=== PATIENT | female | born 1995 | race Caucasian/White ===

== ENCOUNTER 2021-05-01 00:51 | Emergency (ER) | payer MEDICAID ==
[~2021-05-01] VITALS: Ht 154.9 cm; Wt 50.8 kg
--- NOTE | 2021-05-01 01:15 | NUR ---
PT AMBULATED TO ER WITH INTERMITTENT SHARP, NONRADIATING CP. STATES SHE WAS SEEN IN [facility] BUT LEFT TO COME HERE. A/O X4, NO SOB OR LABORED BREATHING, AFEBRILE. CLEAR SPEECH, COMPLETE SENTENCES. 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 ABLE TO MOVE ALL ETXTREMITIES WITHOUT DEFICITS.
--- NOTE | 2021-05-01 01:25 | NUR ---
DR. PARISH AT BEDSIDE, MSE IN PROGRESS.
--- NOTE | 2021-05-01 03:40 | NUR ---
Patient discharged to home in stable condition. No changes in LOC. denies any pain/discomfort upon discharge. Written and verbal after care instructions given. Patient verbalizes understanding of instructions. Stressed follow up or return to ER for worsening s/s. Steady gait.
[2021-05-01 04:23] VITALS: BP 112/70
== END 2021-05-01 03:50 | disposition home or self-care (01) ==
LOC: ER 00:58
DX: I10 Essential (primary) hypertension (principal); R00.1 Bradycardia, unspecified; K21.9 Gastro-esophageal reflux disease without esophagitis
CPT/HCPCS: 36415; 70030-TC; 93005; A4663

== ENCOUNTER 2021-05-02 14:31 | Emergency (ER) | payer MEDICAID ==
[~2021-05-02] VITALS: Ht 154.9 cm; Wt 50.8 kg
--- NOTE | 2021-05-02 14:47 | NUR ---
Urine sent to lab. [email or web address].
[2021-05-02 14:52] LABS: *URINE HCG, QUAL NEGATIVE (NEGATIVE)
[2021-05-02 14:53] LABS: *BILIRUBIN,URIN NEGATIVE (NEGATIVE); *BLOOD, URINE 2+ (NEGATIVE); *COLOR,URINE YELLOW (YELLOW); *KETONES,URINE NEGATIVE (NEGATIVE); *UROBILINOGEN,URINE 0.2 E.U./dl (NORMAL); LEUKOCYTE ESTERASE ,URINE 1+ (NEGATIVE); NITRITE, URINE NEGATIVE (NEGATIVE); PH,URINE 7.5 (5.0-8.0); UGLUCOSE NEGATIVE (NEGATIVE)
[2021-05-02 14:59] LABS: *CLARITY,URINE CLOUDY (CLEAR); RBC,URINE 80-100 /HPF (0-3)
[2021-05-02 15:01] LABS: BACTERIA,URINE FEW /HPF (NONE SEEN); SQUAMOUS EPITHELIAL CELL,UR MANY /HPF (NONE SEEN); URINE AMORPHOUS PHOSPHATES MODERATE /HPF
[2021-05-02 15:03] LABS: HEMATOCRIT 39.3 % (31.2-41.9); MEAN CORPUSCULAR HEMOGLOBIN 32.2 uug (24.7-32.8); MEAN CORPUSCULAR VOLUME 93.3 fL (75.5-95.3); PLATELET COUNT (AUTO) 188 K/uL (179-408)
[2021-05-02 15:16] LABS: ALANINE AMINOTRANSFERASE 87 U/L (14-59); ALKALINE PHOSPHATASE 53 U/L (50-136); ASPARTATE AMINOTRANSFERASE 38 U/L (15-37); BILIRUBIN,DIRECT 0.1 mg/dL (0.0-0.2); BILIRUBIN,TOTAL 0.7 mg/dL (0.2-1.0); CARBON DIOXIDE 24 mmol/L (21-32); CHLORIDE 103 mmol/L (98-107); CREATININE 0.8 mg/dL (0.6-1.3); GLUCOSE 110 mg/dL (74-106); LIPASE 80 U/L (73-393); POTASSIUM 3.7 mmol/L (3.5-5.1); TOTAL PROTEIN, SERUM 7.6 g/dL (6.4-8.2); UREA NITROGEN, BLOOD 14 mg/dL (7-18)
[2021-05-02] MEDS ORDERED: IV NORMAL SALINE 250 ML IV ONE (16:11)
[2021-05-02] MEDS ORDERED: IOHEXOL 300MG/ML 100 ML INFUS..BTL ONE (16:11)
[2021-05-02] MEDS ORDERED: SWABABLE VALVE TRANSFER SET EA MC ONE (16:11)
[2021-05-02] MEDS ORDERED: IV NS 1000 ML 1,000 ML IV ONE (16:15)
--- NOTE | 2021-05-02 17:19 | NUR ---
MD Ignacios on the phone with MD Hernández for urology consult regarding an obstructing kidney stone
[2021-05-02] MEDS ORDERED: ONDANSETRON 4 MG/2 ML VIAL ONE (17:29)
[2021-05-02] MEDS ORDERED: MORPHINE SULFATE 4 MG/1 ML DISP.SYRIN ONE (17:29)
[2021-05-02] MEDS ORDERED: IBUPROFEN 600 MG TABLET PO ONE (18:15)
--- NOTE | 2021-05-02 20:10 | NUR ---
Received report from Elisa ARDON. Patient ambulatory to [facility],reports "no pain,clear urine"gait steady to [facility]. Patient inform transfer to [facility] for higher level care/ Urology eval was recomended by ED Provider, declined by [place] weight caller Urologist. Recepteion informed of patient request to change Hospital.Dr Matt bedside with patient.
--- NOTE | 2021-05-02 21:09 | NUR ---
Assist with patient request to transfer to [facility] ER, Patient spoke with [place] insurance provider Erica on phone. Patient handed me phone,I spoke with November who said the patient was declining to [facility].Patient didnot have coverage for [facility].Patient return to room 2B. Reports denies pain able to palpate flank without pain,Given hat urine filter ,verbal instructions on maintaining hydration,moniter urine for color and stones/sand with filter. Patient asking for IV to be discontinued. House Superviser Cher advised patient mother may be bedside. Agreement for patient to be transfered via Ambulance transport. library customer service clerk bedside with forms. Patient mother was having a conversation with count room clerk that within a minute the mothers voice was very loud and calling count room clerk "F-B", low life" "leave this room, "only send nurse or doctor". library customer service clerk left. ER Charge notified.
--- NOTE | 2021-05-02 22:02 | NUR ---
[place] insurance call to desk. Agrees to call patient on her cell.
--- NOTE | 2021-05-02 23:29 | NUR ---
2325 Covid test patient self swabed x2 nares, to lab. Spoke to November at [place] plan to transfer to [place] pending results of Rapid Covid swab.
--- NOTE | 2021-05-02 23:44 | NUR ---
Patient request to check blood glucose for "feeling shaky,dizzy". BS 91. Juice bow, turky sandwich given to patient advised to eat now small bites.
--- NOTE | 2021-05-03 00:38 | NUR ---
Covid test results negative.Called to [place] spoke to Clarisa [phone] requested to fax test results to [phone]. Trying to have patient accepted to [facility].
--- NOTE | 2021-05-03 01:20 | NUR ---
Call [phone] to Alex spoke to Clarisa fax received.[phone]
--- NOTE | 2021-05-03 03:02 | NUR ---
Clarisa from [place] calls instructes that [facility] with except patient Room 327A. Dr Manzo is accepting. No need for MD to MD call .ETA 07:30 Akira [phone]. Patient informed of this plan.
--- NOTE | 2021-05-03 03:53 | NUR ---
3820 Patient report of flank pain request MD gomez. Dr Matt bedside with patient,her mother. MD recomended medication for comfort declined by patient." I do not want any medications". Ordered fluids,encouraged hydration. Encouraged rest . IV fluid up, comfort measures x 4. Lights down. Patient on phone.
--- NOTE | 2021-05-03 07:45 | NUR ---
Patient picked up via ambulance transport, report given to Odalis ARDON of [facility]
== END 2021-05-03 08:01 | disposition short-term general hospital (02) ==
LOC: ER 14:32
DX: N13.6 Pyonephrosis (principal); Z20.822 Contact with and (suspected) exposure to COVID-19; K21.9 Gastro-esophageal reflux disease without esophagitis
CPT/HCPCS: 36415; 74177; 80048; 80076; 81001; 82962 ×2; 83605 ×2; 83690; 84702; 84703; 85025; 87086; 87426; 96360; 96361; 99285; Q9967; A4663; J2270; J2405; J7030; J7050